=== PATIENT | female | born 1935 | race Caucasian/White ===

== ENCOUNTER → 2018-03-17 | Outpatient (CLI) | payer MEDICARE ==
--- NOTE | 2018-03-17 15:03 | US ---
EXAMINATION TYPE: US carotid duplex BILAT DATE OF EXAM: 03/17/2018 COMPARISON: NONE CLINICAL HISTORY: R09.89 Right carotid bruit. Bruit, No hx of TIA's or stroke. Controlled HTN EXAM MEASUREMENTS: RIGHT: Peak Systolic Velocity (PSV) cm/sec ----- Right CCA: 80.0 ----- Right ICA: 61.6 ----- Right ECA: 103.1 ICA/CCA ratio: 0.8 RIGHT: End Diastole cm/sec ----- Right CCA: 21.5 ----- Right ICA: 18.0 ----- Right ECA: 17.6 LEFT: Peak Systolic Velocity (PSV) cm/sec ----- Left CCA: 84.4 ----- Left ICA: 85.5 ----- Left ECA: 87.7 ICA/CCA ratio: 1.0 LEFT: End Diastole cm/sec ----- Left CCA: 23.8 ----- Left ICA: 28.2 ----- Left ECA: 11.7 VERTEBRALS (direction of flow): Right Vertebral: Antegrade Left Vertebral: Antegrade Rhythm: Normal No elevated velocities or significant stenosis. Bilateral wall thickening. Plaque seen in right bul b and left bulb extending into proximal ICA. IMPRESSION: Moderate degree of grayscale atheromatous plaquing within the left carotid bulb without elevated velocities to indicate hemodynamically significant stenosis within either visualized carotid arterial system.
== END | disposition home or self-care (01) ==
LOC: RADUSWWP 14:03
PROVIDERS: ATTEND Internal Medicine
DX: I67.2 Cerebral atherosclerosis (principal); R09.89 Other specified symptoms and signs involving the circulatory and respiratory systems
CPT/HCPCS: 93880

== ENCOUNTER 2019-03-30 18:46 | Emergency (ER) | payer MEDICARE ==
[2019-03-30 18:56] VITALS: BP 128/71; PULSE 67; RESP 18; TEMP 98.1
[2019-03-30] MEDS ORDERED: DIPH,PERTUS(ACELL)TETVAC-LF 0.5 ML VIAL IM ONE (19:28)
[2019-03-30] MEDS ORDERED: LIDOCAINE 1% INJ 10MG/ML (20 ML MDV) SQ ONE (19:43)
--- NOTE | 2019-03-30 19:44 | ED ---
General Adult HPI - General Chief complaint: Head Injury Stated complaint: fall, facial injury Time Seen by Provider: 03/30/19 19:00 Source: patient, family, RN notes reviewed, old records reviewed Mode of arrival: wheelchair Limitations: no limitations - History of Present Illness Initial comments: 83-year-old female presents range from today after tripping and falling. She states that she was putting her trash away and tripped, she states she was in her bathroom and hit her head. Patient states that she has a laceration over right eyebrow. Just her tetanus is up-to-date. Denies loss of conscious. She went to her neighbors who brought her here for evaluation. Patient does take a daily aspirin. - Related Data Home Medications Medication Instructions Recorded Confirmed Aspirin 81 mg PO Q48H 08/02/14 03/30/19 Triamterene-Hctz 37.5-25Mg 1 cap PO DAILY 08/02/14 03/30/19 [Dyazide 37.5-25 Capsule] amLODIPine BESYLATE/BENAZEPRIL 1 cap PO DAILY 08/02/14 03/30/19 [Lotrel 10-40 mg Capsule] Mirtazapine [Remeron] 7.5 mg PO HS 03/30/19 03/30/19 Allergies Allergy/AdvReac Type Severity Reaction Status Date / Time Iodinated Contrast- Oral and AdvReac "I went Verified 03/30/19 19:08 IV Dye crazy" [Iodinated Contrast Media - IV Dye] prednisone AdvReac Nausea & Verified 03/30/19 19:08 Vomiting Review of Systems ROS Statement: Those systems with pertinent positive or pertinent negative responses have been documented in the HPI. ROS Other: All systems not noted in ROS Statement are negative. Past Medical History Past Medical History: COPD, GERD/Reflux, Hypertension, Osteoarthritis (OA) Additional Past Medical History / Comment(s): past hx. of kidney stones, had back & achilles tendon injury recently but have now healed, impacted stool that she manually removes 3x's per day History of Any Multi-Drug Resistant Organisms: None Reported Past Surgical History: Appendectomy, Back Surgery, Hysterectomy, Tonsillectomy Additional Past Surgical History / Comment(s): carpal tunnel surg., cataract surg 2013 Past Anesthesia/Blood Transfusion Reactions: No Reported Reaction Past Psychological History: No Psychological Hx Reported Smoking Status: Current some day smoker Past Alcohol Use History: None Reported Past Drug Use History: None Reported - Past Family History Mother Family Medical History: Coronary Artery Disease (CAD), Diabetes Mellitus Father Family Medical History: Coronary Artery Disease (CAD) General Exam - General Exam Comments Initial Comments: 83-year-old female. Alert and oriented 3. No distress. Limitations: no limitations General appearance: alert, in no apparent distress Head exam: Present: atraumatic, normocephalic, normal inspection Eye exam: Present: PERRL, EOMI, periorbital swelling, periorbital tenderness (over bilateralupper brow ), other (laceration over r eyebrow, flap 4cm ). Absent: normal appearance, scleral icterus, conjunctival injection ENT exam: Present: normal exam, mucous membranes moist Neck exam: Present: normal inspection. Absent: tenderness, meningismus, lymphadenopathy Respiratory exam: Present: normal lung sounds bilaterally. Absent: respiratory distress, wheezes, rales, rhonchi, stridor Cardiovascular Exam: Present: regular rate, normal rhythm, normal heart sounds. Absent: systolic murmur, diastolic murmur, rubs, gallop, clicks GI/Abdominal exam: Present: soft, normal bowel sounds. Absent: distended, tenderness, guarding, rebound, rigid Extremities exam: Present: normal inspection, full ROM, normal capillary refill. Absent: tenderness, pedal edema, joint swelling, calf tenderness Back exam: Present: normal inspection Neurological exam: Present: alert, oriented X3, CN II-XII intact Psychiatric exam: Present: normal affect, normal mood Skin exam: Present: warm, dry, intact, normal color. Absent: rash Course Vital Signs 03/30/19 18:52 Temperature 98.1 F Pulse Rate 67 Respiratory 18 Rate Blood Pressure 128/71 O2 Sat by Pulse 95 Oximetry Procedures - Laceration Laceration #1 Site: eyelid (R eyebrow ) Size (cm): 4 Description: flap Depth: simple, single layer Anesthetic Used: lidocaine 1% Anesthesia Technique: local infiltration Amount (mls): 4 Pre-repair: wound explored, irrigated extensively Type of Sutures: nylon Size of Sutures: 6-0 Number of Sutures: 8 Technique: simple, interrupted Patient Tolerated Procedure: well, no complications Medical Decision Making - Medical Decision Making 83 year old not on blood thinners had slip and fall, causing bilateral eyebrow bruising, and R eyebrow and lid laceration. EOM and visual acuity intact. CT brain and facial bones is negative for acute process. Wound was cleansed and closed well. Discussed monitor for infection. Disposition Clinical Impression: Fall, Traumatic hematoma of forehead, Eyebrow laceration Disposition: HOME SELF-CARE Condition: Good Instructions (If sedation given, give patient instructions): Fall Prevention for Older Adults (ED), Facial Laceration (ED) Additional Instructions: Please return to the emergency room in 7 days to have sutures removed. Please leave wound covered for the first 24-48 hours and then leave open to air after that time. Please use clean soap and water to clean the suture area to prevent scabbing over the top of your sutures. Please watch for any signs of infection which may include but not limited to increased pain, swelling, redness, fever or chills. Please return to the emergency room if any signs of infection do occur. Please return to the emergency room for any other concerns or complications. Patient should apply ice over the area of hematoma for 20 minutes off and on for the next 1-2 days. Is patient prescribed a controlled substance at d/c from ED?: No Referrals: Mo Araujo MD [Primary Care Provider] - 1-2 days Time of Disposition: 20:30
--- NOTE | 2019-03-30 20:14 | CT ---
EXAMINATION TYPE: CT brain erasmo fuentes DATE OF EXAM: 03/30/2019 COMPARISON: None HISTORY: fall, laceration above right eye CT DLP: 950.2 combined DLP mGycm Automated exposure control for dose reduction was used. TECHNIQUE: CT scan of the head and cervical spine are performed without contrast. FINDINGS: There is cerebral cortical atrophy. There is no mass effect nor midline shift. There is n o sign of intracranial hemorrhage. There is left side frontal scalp soft tissue swelling. The calvari um appears intact. There is soft tissue laceration deformity over the right frontal bone. Cervical vertebra have normal alignment. There is degenerative disc space narrowing in the mid and lo wer cervical spine. Facet joints are intact. The skull base is intact. There is no evidence of a frac ture. IMPRESSION: Cerebral atrophy. No acute intracranial abnormality. Left frontal scalp hematoma. Right frontal scalp laceration. Spondylotic changes in the cervical spine. No fracture seen.
--- NOTE | 2019-03-30 20:17 | CT ---
EXAMINATION TYPE: CT facial bones wo con DATE OF EXAM: 03/30/2019 COMPARISON: None HISTORY: fall, laceration above right eye CT DLP: 950.2 combined DLP mGycm Automated exposure control for dose reduction was used. TECHNIQUE: CT scan of the sinuses is performed without contrast, axial images are obtained, coronal r eformatted images are also reviewed. FINDINGS: Mandibular ring is intact. Temporomandibular joints appear intact. There is mucous small re tention cyst right maxillary sinus. Zygomatic arches are intact. There is no evidence of a blowout fr acture. There is thickening in the floor of the left maxillary sinus. I see no focal bone destruction . Orbital margins are intact. There is no evidence of retro-orbital mass. There is left periorbital s oft tissue swelling. There is right frontal scalp laceration deformity. I see no focal bone destructi on. There is normal aeration of the mastoid sinuses. IMPRESSION: No acute bony abnormality. No fracture seen.
== END 2019-03-30 21:47 | disposition home or self-care (01) ==
LOC: EC 18:46
DX: S01.111A Laceration without foreign body of right eyelid and periocular area, initial encounter (principal); Z23 Encounter for immunization; I10 Essential (primary) hypertension; F17.200 Nicotine dependence, unspecified, uncomplicated; Z79.82 Long term (current) use of aspirin; Z79.899 Other long term (current) drug therapy; Z88.8 Allergy status to other drugs, medicaments and biological substances; Z91.041 Radiographic dye allergy status; W01.198A Fall on same level from slipping, tripping and stumbling with subsequent striking against other object, initial encounter; Y92.002 Bathroom of unspecified non-institutional (private) residence as the place of occurrence of the external cause
CPT/HCPCS: 12013; 70450; 70486; 72125; 90471; 90715; 99284

== ENCOUNTER → 2019-04-06 | Outpatient (CLI) | payer MEDICARE ==
[2019-04-06 16:22] LABS: Vitamin D 25 Hydroxy 20.4 ng/mL (30.0-100.0)
== END | disposition home or self-care (01) ==
LOC: LABWHC1 09:32
PROVIDERS: ATTEND Psychiatry & Neurology Neurology
DX: E55.9 Vitamin D deficiency, unspecified (principal); F03.90 Unspecified dementia, unspecified severity, without behavioral disturbance, psychotic disturbance, mood disturbance, and anxiety; R41.3 Other amnesia
CPT/HCPCS: 36415; 82306; 82607; 82747; 84207; 85652; 86038

== ENCOUNTER 2019-05-24 10:42 | Emergency (ER) | payer MEDICARE ==
[2019-05-24 10:52] VITALS: RESP 18; TEMP 97.4
[2019-05-24] MEDS ORDERED: ACETAMINOPHEN TAB 325 MG TAB PO STA (11:26)
--- NOTE | 2019-05-24 11:54 | ED ---
Back Pain HPI - General Chief Complaint: Back Pain/Injury Stated Complaint: upper back pain Time Seen by Provider: 05/24/19 11:04 Source: patient, Caregiver Mode of arrival: ambulatory Limitations: altered mental status, physical limitation - History of Present Illness Initial Comments: The patient is an 83-year-old female who presents to the emergency department with a reported fall. The patient does live in an assisted care facility. Her main paleologist is at bedside. Her paleologist reports that she had a fall last night that was unwitnessed. The facility staff states that the patient was found in the hallway in the middle the night. She has a history of dementia with sundowners. She frequently has insomnia and will be up all night. The p atient was found have a skin tear to her right forearm and she was complaining of thoracic back pain. The arm was dressed and the patient was taken back to her room. Today the patient's main paleologist visited her and found that she was complaining of constant mid back pain. She does not take anything for pain. The patient cannot provide any details regarding the fall. She denies that she hit her head. She is not on any blood thinners. She denies a syncopal episode. She reports thoracic back pain which is midline as well as paraspinal. She denies any cervical or lumbar back pain. The patient is able to ambulate. She normally ambulates with a cane. She denies any weakness in her lower extremities. Denies any arm pain or leg pain. No reported headaches, nausea, vomiting, abdominal pain, pelvic pain. No changes in her bowel or bladder habits. No recent medication changes. She denies vision changes, unilateral numbness or weakness, fevers or chills. There are no other alleviating, precipitating or modifying factors. - Related Data Home Medications Medication Instructions Recorded Confirmed amLODIPine BESYLATE/BENAZEPRIL 1 cap PO DAILY@0800 /08/14 05/24/19 [Lotrel 10-40 mg Capsule] Furosemide [Lasix] 20 mg PO DAILY@0800 PRN 05/24/19 05/24/19 Melatonin 10 mg PO HS@2100 05/24/19 05/24/19 Memantine [Namenda] See Taper PO DAILY 05/24/19 05/24/19 Sulfamethox-Tmp 800-160Mg [Bactrim 1 tab PO BID 05/24/19 05/24/19 DS 800-160 mg] risperiDONE [RisperDAL] 0.5 mg PO DAILY PRN 05/24/19 05/24/19 risperiDONE [RisperDAL] 1 mg PO BID@1230,2045 05/24/19 05/24/19 Allergies Allergy/AdvReac Type Severity Reaction Status Date / Time Iodinated Contrast- Oral and AdvReac "I went Verified 05/24/19 10:51 IV Dye crazy" [Iodinated Contrast Media - IV Dye] prednisone AdvReac Nausea & Verified 05/24/19 10:51 Vomiting Review of Systems ROS Statement: Those systems with pertinent positive or pertinent negative responses have been documented in the HPI. ROS Other: All systems not noted in ROS Statement are negative. Past Medical History Past Medical History: COPD, Dementia, GERD/Reflux, Hypertension, Osteoarthritis (OA) Additional Past Medical History / Comment(s): past hx. of kidney stones, had back & achilles tendon injury recently but have now healed, impacted stool that she manually removes 3x's per day History of Any Multi-Drug Resistant Organisms: None Reported Past Surgical History: Appendectomy, Back Surgery, Hysterectomy, Tonsillectomy Additional Past Surgical History / Comment(s): carpal tunnel surg., cataract surg 2013 Past Anesthesia/Blood Transfusion Reactions: No Reported Reaction Past Psychological History: No Psychological Hx Reported Smoking Status: Current some day smoker Past Alcohol Use History: None Reported Past Drug Use History: None Reported - Past Family History Mother Family Medical History: Coronary Artery Disease (CAD), Diabetes Mellitus Father Family Medical History: Coronary Artery Disease (CAD) General Exam Limitations: altered mental status, physical limitation General appearance: alert, in no apparent distress, other (the patient is A+Ox2 at baseline) Head exam: Present: atraumatic, normocephalic, normal inspection Eye exam: Present: normal appearance, PERRL, EOMI. Absent: scleral icterus, conjunctival injection, periorbital swelling ENT exam: Present: normal exam, mucous membranes moist Neck exam: Present: normal inspection. Absent: tenderness, meningismus, lymphadenopathy Respiratory exam: Present: normal lung sounds bilaterally. Absent: respiratory distress, wheezes, rales, rhonchi, stridor Cardiovascular Exam: Present: regular rate, normal rhythm, normal heart sounds. Absent: systolic murmur, diastolic murmur, rubs, gallop, clicks GI/Abdominal exam: Present: soft, normal bowel sounds. Absent: distended, tenderness, guarding, rebound, rigid Extremities exam: Present: normal inspection, full ROM, normal capillary refill. Absent: tenderness, pedal edema, joint swelling, calf tenderness Back exam: Present: normal inspection Neurological exam: Present: alert, oriented X3, CN II-XII intact Psychiatric exam: Present: normal affect, normal mood Skin exam: Present: warm, dry, intact, normal color, other (The patient is a 3 cm skin tear located to the right forearm). Absent: rash Course Vital Signs 05/24/19 05/24/19 05/24/19 10:49 12:47 14:00 Temperature 97.4 F L Pulse Rate 59 L 61 Respiratory 18 18 18 Rate Blood Pressure 107/53 106/60 116/63 O2 Sat by Pulse 90 L 95 Oximetry Medical Decision Making - Medical Decision Making The patient was seen by myself. She is placed in room 9. I did perform a physical exam which demonstrates a skin tear to the right forearm. The patient was provided with a tetanus shot. She does go over for CT imaging of her brain, C-spine, T-spine. She also has a chest and pelvic x-ray performed. CT of the patient's brain does reveal possible occipital petechial hemorrhage. She also has a T3 compression fracture which I do believe is acute as this is where the patient's pain is located. I recommended transfer to [facility] for which the patient and the paleologist agreed. I called and discussed the case with Dr. Castano who did accept the transfer. The patient will be transferred for neurosurgical evaluation. - Differential Diagnosis Fall, blunt head trauma, possible petechial bleed - Radiology Data Radiology results: report reviewed, image reviewed Disposition Clinical Impression: Mid back pain, Fall, Closed fracture of thoracic vertebral body Disposition: OTHER INSTITUTION NOT DEFINED Condition: Stable Is patient prescribed a controlled substance at d/c from ED?: No Referrals: Polo Poole MD [Primary Care Provider] - 1-2 days Time of Disposition: 14:00 - Out of Hospital Transfer - Req. Specs Out of Hospital Transfer - Requested Specifics: Intensive Care Unit
--- NOTE | 2019-05-24 12:29 | XR ---
EXAMINATION TYPE: XR chest 2V DATE OF EXAM: 05/24/2019 HISTORY: Pain. REFERENCE: Previous study dated 03/06/2016. FINDINGS: The heart is enlarged. There are increased markings throughout the chest. No pleural fluid is seen. The study is rotated. IMPRESSION: CARDIOMEGALY.
--- NOTE | 2019-05-24 12:30 | XR ---
EXAMINATION TYPE: XR pelvis AP view , ONE VIEW DATE OF EXAM ORDERED: 05/24/2019 HISTORY: Pain. COMPARISON: None. FINDINGS: There are degenerative changes in the hips and spine. No pelvic fracture is seen. IMPRESSION: 1. NO ACUTE OSSEOUS LESION. 2. DEGENERATIVE CHANGE.
--- NOTE | 2019-05-24 12:31 | XR ---
EXAMINATION TYPE: XR forearm RT , 2 VIEWS DATE OF EXAM ORDERED: 05/24/2019 HISTORY: Pain. COMPARISON: None. FINDINGS: No long bone fracture is seen. There are degenerative changes present at the first MCP julianna nt. IMPRESSION: NO ACUTE OSSEOUS LESION.
--- NOTE | 2019-05-24 12:35 | CT ---
EXAMINATION TYPE: CT thoracic spine wo con DATE OF EXAM: 05/24/2019 COMPARISON: None. HISTORY: Fall CT DLP: 445 mGycm Automated exposure control for dose reduction was used. FINDINGS: There are emphysematous changes throughout the visualized portions of the lungs. There is a telectasis present in the dependent portions of the lungs. There is additional airspace disease in th e posterior basal segment of the left lower lobe which may represent additional atelectasis or early pneumonia. The heart is mildly enlarged. There is arterial calcification including the coronary arter ies. Vertebral body height and alignment are maintained. 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 No fractures are seen. No protrusi on is identified. IMPRESSION: 1. NO ACUTE OSSEOUS LESION. 2. DEGENERATIVE CHANGE.
--- NOTE | 2019-05-24 12:46 | CT ---
EXAMINATION TYPE: CT brain erasmo fuentes DATE OF EXAM: 05/24/2019 COMPARISON: NONE HISTORY: Fall CT DLP: 1211.1 mGycm Automated exposure control for dose reduction was used. TECHNIQUE: CT scan of the head and cervical spine are performed without contrast. FINDINGS: BRAIN: There are generalized changes of sulcal prominence and ventriculomegaly, compatible with atrop hic change. There is diffuse periventricular white matter lucency compatible with chronic white matte r ischemic change. There is no acute focal lesion, mass effect or midline shift identified. I do not see evidence of intracranial blood. There is a small amount of calcification along the inferior occip ital lobe. This is just above the tentorium. It would be difficult to exclude some minimal petechial hemorrhage. There is no mass effect or midline shift. There is a 1 cm retention cyst or polyp in the anterior aspect of the right maxillary sinus. There ar e concretions within the left maxillary sinus. The mastoids are clear. The bony calvarium is intact. IMPRESSION: 1. ALTHOUGH THE INCREASED DENSITY IN THE INFERIOR OCCIPITAL LOBE ON THE RIGHT LIKELY REPRESENTS CALCI FICATION I COULD NOT EXCLUDE A SMALL AMOUNT OF PETECHIAL HEMORRHAGE. 2. AGE-RELATED DEGENERATIVE CHANGE. 3. BILATERAL MAXILLARY SINUS MUCOSAL DISEASE. CERVICAL SPINE: There are emphysematous changes in the visualized portions of the lungs. Prevertebral soft tissues are otherwise unremarkable. There is mild wedging of the T3 vertebral body. I suspect this is chronic. There is diffuse degenerat keyla disc disease throughout the cervical spine with relative sparing of C2-3 and C3-4. There is mild, diffuse uncovertebral joint disease. There is facet arthropathy on the left at C2-3. There is bilate ral facet arthropathy at C4-5 No acute cervical fractures are seen. IMPRESSION: 1. MILD WEDGING OF THE T3 VERTEBRAL BODY, LIKELY CHRONIC. PLEASE CORRELATE CLINICALLY. 2. NO DEFINITE ACUTE FRACTURE. 3. DEGENERATIVE CHANGE. 4. EMPHYSEMATOUS CHANGE.
[2019-05-24] MEDS ORDERED: DIPH,PERTUS(ACELL)TETVAC-LF 0.5 ML VIAL IM ONE (13:24)
[2019-05-24 14:05] VITALS: BP 116/63; PULSE 61
== END 2019-05-24 14:13 | disposition other institution (70) ==
LOC: EC 10:42
DX: S22.039A Unspecified fracture of third thoracic vertebra, initial encounter for closed fracture (principal); S51.811A Laceration without foreign body of right forearm, initial encounter; F03.90 Unspecified dementia, unspecified severity, without behavioral disturbance, psychotic disturbance, mood disturbance, and anxiety; I10 Essential (primary) hypertension; F17.200 Nicotine dependence, unspecified, uncomplicated; Z98.890 Other specified postprocedural states; Z23 Encounter for immunization; Z79.899 Other long term (current) drug therapy; Z91.041 Radiographic dye allergy status; Z88.8 Allergy status to other drugs, medicaments and biological substances; W19.XXXA Unspecified fall, initial encounter; Y92.128 Other place in nursing home as the place of occurrence of the external cause
CPT/HCPCS: 70450; 71046; 72125; 72128; 72170; 90471; 90715; 99285

== ENCOUNTER 2019-06-09 11:21 | Inpatient (IN) | payer MEDICARE ==
[2019-06-09] MEDS ORDERED: SODIUM CHLORIDE 0.9% 1,000 ML IV STA ×2 (11:55)
[2019-06-09 13:03] LABS: Basophils % (A) 0 %; Eosinophils # (A) 0.1 k/uL (0-0.7); Eosinophils % (A) 1 %; HCT 41.7 % (34.0-46.0); HGB 13.3 gm/dL (11.4-16.0); Lymphocytes # (A) 0.3 k/uL (1.0-4.8); Lymphocytes % (A) 2 %; MCH 29.8 pg (25.0-35.0); MCHC 31.8 g/dL (31.0-37.0); MCV 93.7 fL (80.0-100.0); Mean Platelet Volume 7.1; Monocytes # (A) 0.4 k/uL (0-1.0); Monocytes % (A) 3 %; Neutrophils # (A) 10.5 k/uL (1.3-7.7); Neutrophils % (A) 93 %; Platelet Count 273 k/uL (150-450); RBC 4.45 m/uL (3.80-5.40); RDW 13.8 % (11.5-15.5); WBC 11.4 k/uL (3.8-10.6)
[2019-06-09 13:12] LABS: INR 0.9 (<1.2); Partial Thromboplastin Time 24.6 sec (22.0-30.0); Prothrombin Time 10.1 sec (9.0-12.0)
[2019-06-09 13:21] LABS: Albumin 3.8 g/dL (3.5-5.0); Calcium 9.3 mg/dL (8.4-10.2); Magnesium 1.9 mg/dL (1.6-2.3); Phosphorus 4.2 mg/dL (2.5-4.5); Potassium 4.5 mmol/L (3.5-5.1); Total Bilirubin 0.6 mg/dL (0.2-1.3); Total Protein 6.4 g/dL (6.3-8.2)
--- NOTE | 2019-06-09 13:33 | CT ---
EXAMINATION TYPE: CT brain wo con DATE OF EXAM: 06/09/2019 HISTORY: Altered mental status and weakness. CT DLP: 2286.4 mGycm. Automated Exposure Control for Dose Reduction was Utilized. TECHNIQUE: CT scan of the head is performed without contrast. COMPARISON: CT brain May 24, 2019. FINDINGS: Exam suboptimal as is degraded by patient motion There is no definitive acute intracrania l hemorrhage or midline shift identified. There is diffuse ventricular and sulcal prominence consiste nt with diffuse age-related cerebral atrophy. There is low-attenuation in the periventricular white matter consistent with chronic small vessel ischemic change. The globes are intact and the visualize d sinuses are clear. IMPRESSION: Suboptimal study without acute intracranial hemorrhage or midline shift clearly seen. Th ere is moderate diffuse age-related cerebral atrophy and chronic small vessel ischemic change demonst rated. There is no significant change from prior.
--- NOTE | 2019-06-09 13:42 | XR ---
EXAMINATION TYPE: XR chest 2V DATE OF EXAM: 06/09/2019 COMPARISON: 05/24/2019 TECHNIQUE: PA and lateral views submitted. HISTORY: Weakness FINDINGS: Left lower lobe infiltrate. Atherosclerotic change aorta. Heart size normal. No pneumothorax. Chronic deformity of the left humeral neck. No overt failure. Hypertrophic and degenerative changes spine. IMPRESSION: 1. Left lower lobe infiltrate.
[2019-06-09 13:50] LABS: Appearance,Urine Cloudy (Clear); Bacteria,Urine Rare /hpf; Bilirubin,Urine Negative (Negative); Blood,Urine Negative (Negative); Color,Urine Yellow; Glucose,Urine (UA) Negative (Negative); Ketones,Urine Negative (Negative); Leukocyte Esterase,Urine Negative (Negative); Nitrite,Urine Negative (Negative); PH, Urine 5.5 (5.0-8.0); Protein,Urine Trace (Negative); Specific Gravity,Urine 1.022 (1.001-1.035); Squamous Epithelial Cell,Urine 1 /hpf (0-4); Urobilinogen,Urine <2.0 mg/dL (<2.0)
[2019-06-09] MEDS ORDERED: IPRATROPIUM-ALBUTEROL 3 ML NEB INHALATION STA (14:17)
--- NOTE | 2019-06-09 14:17 | ED ---
Weakness HPI - General Chief complaint: Weakness Stated complaint: WEAKNESS, Hx DIARRHEA, VOMITING Time Seen by Provider: 06/09/19 11:41 Source: family Mode of arrival: wheelchair Limitations: no limitations - History of Present Illness Initial comments: This 83-year-old white female presents with son and caregiver from her assisted living facility via EMS with the complaint of some weakness and mental status changes. She apparently had onset of symptoms this morning. They also relate that she has been coughing with yellowish production over the past week with some pain into her left side. They saw their primary care doctor and was placed on antibiotics for urinary tract infection. She apparently is not on these anymore and they are not aware of the name of the antibiotic. The patient has dementia and is limited in regard to her ability to give an accurate history of present illness. She denies any current pain. She denies any shortness of breath. There's been no known fever. No other injuries or complaints or modifying factors. She apparently does smoke tobacco significantly. - Related Data Home Medications Medication Instructions Recorded Confirmed amLODIPine BESYLATE/BENAZEPRIL 1 cap PO DAILY@0800 08/02/14 06/09/19 [Lotrel 10-40 mg Capsule] Furosemide [Lasix] 20 mg PO DAILY@0800 PRN 05/24/19 06/09/19 Melatonin 10 mg PO HS@2100 05/24/19 06/09/19 risperiDONE [RisperDAL] 0.5 mg PO DAILY PRN 05/24/19 06/09/19 risperiDONE [RisperDAL] 1 mg PO BID@1230,2045 05/24/19 06/09/19 traZODone HCL 25 mg PO HS 06/09/19 06/09/19 Allergies Allergy/AdvReac Type Severity Reaction Status Date / Time Iodinated Contrast- Oral and AdvReac "I went Verified 06/09/19 12:02 IV Dye crazy" [Iodinated Contrast Media - IV Dye] prednisone AdvReac Nausea & Verified 06/09/19 12:02 Vomiting Review of Systems ROS Statement: Those systems with pertinent positive or pertinent negative responses have been documented in the HPI. ROS Other: All systems not noted in ROS Statement are negative. Past Medical History Past Medical History: COPD, Dementia, GERD/Reflux, Hypertension, Osteoarthritis (OA) Additional Past Medical History / Comment(s): past hx. of kidney stones, had back & achilles tendon injury recently but have now healed, impacted stool that she manually removes 3x's per day History of Any Multi-Drug Resistant Organisms: None Reported Past Surgical History: Appendectomy, Back Surgery, Hysterectomy, Tonsillectomy Additional Past Surgical History / Comment(s): carpal tunnel surg., cataract surg 2013 Past Anesthesia/Blood Transfusion Reactions: No Reported Reaction Past Psychological History: No Psychological Hx Reported Smoking Status: Current every day smoker Past Alcohol Use History: None Reported Past Drug Use History: None Reported - Past Family History Mother Family Medical History: Coronary Artery Disease (CAD), Diabetes Mellitus Father Family Medical History: Coronary Artery Disease (CAD) General Exam - General Exam Comments Initial Comments: GENERAL: The patient is well nourished and well hydrated. VITAL SIGNS: Heart rate, blood pressure, respiratory rate reviewed as recorded in nurse's notes. EYES: Pupils are round and reactive. Extraocular movements are intact. No conjunctival / lid redness or swelling. ENT: No external evidence of injury, swelling, or ecchymosis. Airway is patent. Throat is clear. NECK: Nontender. No swelling or evidence of injury. No subcutaneous emphysema. Trachea is midline. No thyroid mass. HEART: Regular rate and rhythm. Good peripheral pulses. LUNGS/CHEST: Breath sounds clear and equal bilaterally. No rales, rhonchi, or wheezes. No ecchymosis, subcutaneous emphysema, or tenderness. ABDOMEN: Abdomen soft without tenderness. No palpable masses or organomegaly. No peritoneal signs. No abdominal wall swelling or ecchymosis. EXTREMITIES: No extremity tenderness. Normal muscle tone and function. No thoracolumbar tenderness. NEUROLOGIC: Sensation is grossly intact. Cranial nerve exam reveals face is symmetrical, tongue is midline, speech is clear. The patient is quite stuporous initially and will not answer any questions but on recheck is quite alert and interactive. SKIN: No abrasions or ecchymosis is noted. No induration or masses noted. PSYCHIATRIC: The patient appears to be moderately demented. Limitations: no limitations Course Vital Signs 06/09/19 11:34 Temperature 99.5 F Pulse Rate 103 H Respiratory 24 Rate Blood Pressure 106/67 O2 Sat by Pulse 97 Oximetry Medical Decision Making - Medical Decision Making The patient was seen and examined. All diagnostics were reviewed. The EKG shows a sinus rhythm at a rate of 69. There appears to be a left bundle branch block. The SC intervals 244, QRS duration is 148, and the QTC intervals 443. The patient also had a chest x-ray which shows a left lower lobe infiltrate/pneumonia. The laboratory shows elevated white blood cell count consistent with infection/pneumonia. The patient receives IV fluids and her mental status change significantly improved. She also receives Rocephin and Zithromax intravenously. She has a pulse ox of approximately 90-91% on room air. A breathing treatment is ordered. It is felt as though she would benefit from inpatient treatment at this time. Case is discussed with Dr. Johnson and she is agreeable with admission. - Lab Data Result diagrams: 06/09/19 12:45 06/09/19 12:45 Lab Results 06/09/19 06/09/19 06/09/19 Range/Units 12:45 12:45 12:45 WBC 11.4 H (3.8-10.6) k/uL RBC 4.45 (3.80-5.40) m/uL Hgb 13.3 (11.4-16.0) gm/dL Hct 41.7 (34.0-46.0) % MCV 93.7 (80.0-100.0) fL MCH 29.8 (25.0-35.0) pg MCHC 31.8 (31.0-37.0) g/dL RDW 13.8 (11.5-15.5) % Plt Count 273 (150-450) k/uL Neutrophils % 93 % Lymphocytes % 2 % Monocytes % 3 % Eosinophils % 1 % Basophils % 0 % Neutrophils # 10.5 H (1.3-7.7) k/uL Lymphocytes # 0.3 L (1.0-4.8) k/uL Monocytes # 0.4 (0-1.0) k/uL Eosinophils # 0.1 (0-0.7) k/uL Basophils # 0.0 (0-0.2) k/uL PT (9.0-12.0) sec INR (<1.2) APTT (22.0-30.0) sec Sodium 139 (137-145) mmol/L Potassium 4.5 (3.5-5.1) mmol/L Chloride 104 (98-107) mmol/L Carbon Dioxide 25 (22-30) mmol/L Anion Gap 10 mmol/L BUN 40 H (7-17) mg/dL Creatinine 0.98 (0.52-1.04) mg/dL Est GFR (CKD-EPI)AfAm 62 (>60 ml/min/1.73 sqM) Est GFR (CKD-EPI)NonAf 54 (>60 ml/min/1.73 sqM) Glucose 109 H (74-99) mg/dL Plasma Lactic Acid Lázaro 1.2 (0.7-2.0) mmol/L Calcium 9.3 (8.4-10.2) mg/dL Phosphorus 4.2 (2.5-4.5) mg/dL Magnesium 1.9 (1.6-2.3) mg/dL Total Bilirubin 0.6 (0.2-1.3) mg/dL AST 20 (14-36) U/L ALT 15 (9-52) U/L Alkaline Phosphatase 89 (38-126) U/L Troponin I (0.000-0.034) ng/mL Total Protein 6.4 (6.3-8.2) g/dL Albumin 3.8 (3.5-5.0) g/dL Urine Color Urine Appearance (Clear) Urine pH (5.0-8.0) Ur Specific [place] (1.001-1.035) Urine Protein (Negative) Urine Glucose (UA) (Negative) Urine Ketones (Negative) Urine Blood (Negative) Urine Nitrite (Negative) Urine Bilirubin (Negative) Urine Urobilinogen (<2.0) mg/dL Ur Leukocyte Esterase (Negative) Ur Squamous Epith Cells (0-4) /hpf Urine Bacteria (None) /hpf 06/09/19 06/09/19 06/09/19 Range/Units 12:45 12:45 13:00 WBC (3.8-10.6) k/uL RBC (3.80-5.40) m/uL Hgb (11.4-16.0) gm/dL Hct (34.0-46.0) % MCV (80.0-100.0) fL MCH (25.0-35.0) pg MCHC (31.0-37.0) g/dL RDW (11.5-15.5) % Plt Count (150-450) k/uL Neutrophils % % Lymphocytes % % Monocytes % % Eosinophils % % Basophils % % Neutrophils # (1.3-7.7) k/uL Lymphocytes # (1.0-4.8) k/uL Monocytes # (0-1.0) k/uL Eosinophils # (0-0.7) k/uL Basophils # (0-0.2) k/uL PT 10.1 (9.0-12.0) sec INR 0.9 (<1.2) APTT 24.6 (22.0-30.0) sec Sodium (137-145) mmol/L Potassium (3.5-5.1) mmol/L Chloride (98-107) mmol/L Carbon Dioxide (22-30) mmol/L Anion Gap mmol/L BUN (7-17) mg/dL Creatinine (0.52-1.04) mg/dL Est GFR (CKD-EPI)AfAm (>60 ml/min/1.73 sqM) Est GFR (CKD-EPI)NonAf (>60 ml/min/1.73 sqM) Glucose (74-99) mg/dL Plasma Lactic Acid Lázaro (0.7-2.0) mmol/L Calcium (8.4-10.2) mg/dL Phosphorus (2.5-4.5) mg/dL Magnesium (1.6-2.3) mg/dL Total Bilirubin (0.2-1.3) mg/dL AST (14-36) U/L ALT (9-52) U/L Alkaline Phosphatase (38-126) U/L Troponin I 0.014 (0.000-0.034) ng/mL Total Protein (6.3-8.2) g/dL Albumin (3.5-5.0) g/dL Urine Color Yellow Urine Appearance Cloudy H (Clear) Urine pH 5.5 (5.0-8.0) Ur Specific [place] 1.022 (1.001-1.035) Urine Protein Trace H (Negative) Urine Glucose (UA) Negative (Negative) Urine Ketones Negative (Negative) Urine Blood Negative (Negative) Urine Nitrite Negative (Negative) Urine Bilirubin Negative (Negative) Urine Urobilinogen <2.0 (<2.0) mg/dL Ur Leukocyte Esterase Negative (Negative) Ur Squamous Epith Cells 1 (0-4) /hpf Urine Bacteria Rare H (None) /hpf Disposition Clinical Impression: Pneumonia, Altered mental status, Dementia, Leukocytosis, Hypoxia, Tobacco abuse Disposition: ADMITTED IP TO THIS HOSP Condition: Fair Is patient prescribed a controlled substance at d/c from ED?: No Referrals: Polo Poole MD [Primary Care Provider] - 1-2 days Time of Disposition: 14:30 Decision Date: 06/09/19 Decision Time: 14:30
[2019-06-09] MEDS ORDERED: AZITHROMYCIN 500 MG in SODIUM CHLORIDE 0.9% 250 ML IVPB STA (14:18)
[2019-06-09] MEDS ORDERED: IPRATROPIUM-ALBUTEROL 3 ML NEB INHALATION PRN (14:30)
[2019-06-09] MEDS ORDERED: risperiDONE 0.5 MG TAB PO PRN (14:36)
[2019-06-09 15:18] VITALS: BMI 21.1
[2019-06-09] MEDS ORDERED: ONDANSETRON 4 MG/2 ML VIAL IVP PRN (15:41)
[2019-06-09] MEDS ORDERED: NALOXONE 0.4 MG/ML 1 ML VIAL IV PRN (15:41)
[2019-06-09] MEDS ORDERED: NICOTINE POLACRILEX 2 MG GUM BUCCAL PRN (15:41)
[2019-06-09] MEDS ORDERED: BISACODYL 5 MG TABLET.DR PO PRN (15:41)
--- NOTE | 2019-06-09 15:49 | P.HPIM ---
History of Present Illness H&P Date: 06/09/19 Chief Complaint: vomiting, cough, diarrhea Patient is an 83-year-old female with a past medical history of dementia with sundowner's, hypertension, GERD, kidney stones, and possible COPD who presented to the emergency department and due to concern from her woods laborer and family of altered mentation and vomiting. In the ER she underwent an extensive evaluation. On arrival she was tachycardic with heart rate of 103. Laboratory analysis revealed white blood cell count of 11.4, BUN 40 and glucose of 109. She underwent a chest x-ray which showed left lower lobe infiltrate and CT brain which showed no acute intracranial hemorrhage or midline shift along with moderate diffuse age-related atrophy. She was started on IV fluids, Rocephin, and Zithromax. Arrangements were made for admission. Patient seen and examined at bedside. Her son Crispin is present. Apparently she was in her normal state of health yesterday. However when she awoke today she had an episode of vomiting and diarrhea. She was very lethargic and seemed more confused than normal. Patient has dementia and is unable to recount full history. She denies any cough, cold, fever, flu, nausea, vomiting, or diarrhea. She is not currently having any abdominal pain. Patient follows with [facility] Barros nurse practitioner for Dr. aguirre's office. Apparently she has been having some left-sided chest pain and coughing for the last week. She was seen at Dr. Hays's office but they did not initially have concern for pneumonia. She has been taking antibiotics for her urinary tract infection. Her son is unsure what antibiotic. She has a woods laborer Eileen Paz that typically takes her all of her appointments and is able to make medical decisions for the patient. Her son typically lives in [place] and is due to return home tomorrow. She also has had recent medication adjustment due to her dementia with sundowner's. She smokes approximately a pack a day. She used to see Dr. Araujo but was angry after her drivers license was taken away and she started seeing [facility] about 3-4 months ago. Review of Systems ROS unobtainable: due to mental status Past Medical History Past Medical History: COPD, Dementia, GERD/Reflux, Hypertension, Osteoarthritis (OA) Additional Past Medical History / Comment(s): Chronic Bronchitis, nephrolithiasis, constipation/stool impactions, diverticulosis, hepatitis years ago-pt cannot recall type, occasional ankle/pedal edema, arthritis in hands/fingers/feet/toes, hiatla hernia. T 3 compression fracture. Frequent UTI. History of Any Multi-Drug Resistant Organisms: None Reported Past Surgical History: Appendectomy, Back Surgery, Hysterectomy, Orthopedic Surgery, Tonsillectomy Additional Past Surgical History / Comment(s): EGD, colonoscopy, hemorrhoidectomy, bilateral carpal tunnel releases, lumbar fusion, bilateral cataract removals/lens implants, L eye corneal debridement. Past Anesthesia/Blood Transfusion Reactions: No Reported Reaction Smoking Status: Current every day smoker Past Alcohol Use History: None Reported Additional History: Lives [facility], has care takers that bringher to each meal and do medications, also has someone that sits with her 4 hours at night due to . - Past Family History Mother Family Medical History: Coronary Artery Disease (CAD), Diabetes Mellitus, Hypertension Father Family Medical History: Coronary Artery Disease (CAD) Additional Family Medical History / Comment(s): Father had PUD. Medications and Allergies Home Medications Medication Instructions Recorded Confirmed Type amLODIPine BESYLATE/BENAZEPRIL 1 cap PO DAILY@0800 09//06/09/19 History [Lotrel 10-40 mg Capsule] Furosemide [Lasix] 20 mg PO DAILY@0800 PRN 05/24/19 06/09/19 History Melatonin 10 mg PO HS@2100 05/24/19 06/09/19 History risperiDONE [RisperDAL] 0.5 mg PO DAILY PRN 05/24/19 06/09/19 History risperiDONE [RisperDAL] 1 mg PO BID@1230,2045 05/24/19 06/09/19 History traZODone HCL 25 mg PO HS 06/09/19 06/09/19 History Allergies Allergy/AdvReac Type Severity Reaction Status Date / Time Iodinated Contrast- Oral and AdvReac "I went Verified 06/09/19 12:02 IV Dye crazy" [Iodinated Contrast Media - IV Dye] prednisone AdvReac Nausea & Verified 06/09/19 12:02 Vomiting Physical Exam Osteopathic Statement: *. No significant issues noted on an osteopathic structural exam other than those noted in the History and Physical/Consult. Vitals: Vital Signs Temp Pulse Resp BP Pulse Ox 06/09/19 14:43 78 06/09/19 14:35 79 06/09/19 11:34 99.5 F 103 H 24 106/67 97 Intake and Output 06/09/19 06/09/19 06/09/19 06:59 14:59 22:59 Other: Weight 48.988 kg General: non toxic, no distress, appears at stated age, normal weight Derm: multiple areas of ecchymosis, no unusual rashes/lesions, warm, dry Head: atraumatic, normocephalic, symmetric Eyes: EOMI, no lid lag, anicteric sclera, pupils equal round reactive to light ENT: Nose and ears atraumatic, no thrush, no pharyngeal erythema Neck: No thyromegaly, no cervical lymphadenopathy, trachea midline, supple Mouth: no lip lesion, mucus membranes dry Cardiovascular: S1S2 reg, no murmur, positive posterior tibial pulse bilateral, no edema, capillary refill less than 2 seconds Lungs: Decreased bs left basel, no rhonchi, no rales , no accessory muscle use Abdominal: soft, nontender to palpation, no guarding, no appreciable organomegaly, normal bowel sounds Ext: no gross muscle atrophy, muscle strength 5 out of 5 in all 4 extremities grossly, no contractures, Neuro: CN II-XI grossly intact, light touch intact all 4 extremities, finger to nose within normal limits, Psych: Alert, oriented to self, [facility], and thinks it is 2016, appropriate affect Results CBC & Chem 7: 06/09/19 12:45 06/09/19 12:45 Labs: Abnormal Lab Results - Last 24 Hours (Table) 06/09/19 06/09/19 06/09/19 Range/Units 12:45 12:45 13:00 WBC 11.4 H (3.8-10.6) k/uL Neutrophils # 10.5 H (1.3-7.7) k/uL Lymphocytes # 0.3 L (1.0-4.8) k/uL BUN 40 H (7-17) mg/dL Glucose 109 H (74-99) mg/dL Urine Appearance Cloudy H (Clear) Urine Protein Trace H (Negative) Urine Bacteria Rare H (None) /hpf Chest x-ray: report reviewed, image reviewed Thrombosis Risk Factor Assmnt - DVT/VTE Prophylaxis DVT/VTE Prophylaxis: Pharmacologic Prophylaxis ordered - Choose All That Apply Any of the Below Risk Factors Present?: Yes Each Factor Represents 1 point: Serious lung disease incl. pneumonia (< 1month) Other Risk Factors: Yes Each Risk Factor Represents 3 Points: Age 75 years or older Other congenital or acquired thrombophilia - If yes, enter type in comment: No Thrombosis Risk Factor Assessment Total Risk Factor Score: 4 Thrombosis Risk Factor Assessment Level: Moderate Risk Assessment and Plan Assessment: Community-acquired pneumonia, present on admission -Continue with Zithromax and Rocephin -IV fluids -Repeat chest x-ray in a.m. -Sputum culture if able -Pulmonary hygiene -Bronchodilators -swallow eval Dehydration -Hold Lasix -Gentle IV fluids -Repeat basic metabolic profile in a.m. Dementia with sundowner's -Continue patient's risperidone, trazodone, and melatonin -Safe and supportive environment -Sitter if necessary HTN, controlled - norvasc and lisinopril - follow BP Tobacco abuse - cessation - nicotine replacement Chronic: GERD Recurrent urinary tract infection Constipation The patient is admitted with an anticipated greater than 2 midnight stay for evaluation of Pneumonia. Surrogate decision-maker: drive thru order taker Eileen Paz, first person to [employer] and has DPOA [phone] CODE STATUS: DNR DVT prophylaxis: Lovenox Discussed with: Patient, nursing, son, and ED physician Anticipated discharge date: 1-[address]: return to [facility] with home health A total of 65 minutes was spent on the care of this complex patient more than 50% of the time was spent in counseling and care coordination.
[2019-06-09] MEDS: SODIUM CHLORIDE 0.9% 1,000 ML IV SCH (19:45)
[2019-06-09] MEDS: NICOTINE 14MG/24HR PATCH TRANSDERM SCH (19:51)
[2019-06-09] MEDS: risperiDONE 1 MG TAB PO SCH (20:47)
[2019-06-09] MEDS: MELATONIN 5 MG TABLET PO SCH (21:12)
[2019-06-09] MEDS: traZODone HCL 50 MG TAB PO SCH (21:12)
[2019-06-10] MEDS: SODIUM CHLORIDE 0.9% 1,000 ML IV SCH ×2 (04:59→18:24)
[2019-06-10 09:21] LABS: HCT 39.7 % (34.0-46.0); HGB 12.8 gm/dL (11.4-16.0); MCH 30.1 pg (25.0-35.0); MCHC 32.2 g/dL (31.0-37.0); MCV 93.6 fL (80.0-100.0); Mean Platelet Volume 7.4; Platelet Count 215 k/uL (150-450); RBC 4.24 m/uL (3.80-5.40); RDW 14.5 % (11.5-15.5); WBC 6.1 k/uL (3.8-10.6)
[2019-06-10] MEDS: ENOXAPARIN 40 MG/0.4 ML SYRINGE SQ SCH (09:22)
[2019-06-10] MEDS: amLODIPine 10 MG TAB PO SCH (09:22)
[2019-06-10] MEDS: LISINOPRIL 20 MG TAB PO SCH (09:22)
--- NOTE | 2019-06-10 09:22 | CDI ---
Pt. was seen today for the first time and she was pleasantly confused but not encephalopathic. She was not seen when presented so unable to determine her mental status at presentation. Documentation Clarification Form Date: 06/10/2019 9:04:10 AM From: Haley Rodriguez RN CCDS Admit Date: 06/09/2019 2:30:00 PM Patient Name: Jesusita Blanton Visit Number: [id number] Discharge Date: ATTENTION: The Clinical Documentation Specialists (CDI) and [facility] Coding Staff appreciate your assistance in clarifying documentation. Please respond to the clarification below the line at the bottom and electronically sign. The CDI & [facility] Coding staff will review the response and follow-up if needed. Please note: Queries are made part of the Legal Health Record. If you have any questions, please contact the author of this message via ITS. Dr. Michoacano Larose MD Altered Mental Status was documented in the ED Note and H & P History/Risk Factors: 83 year old female presents to the ED for weakness and mental status changes. Medical History of COPD, Dementia with sundowners, GERD, HTN, OA , Clinical Indicators: Per the H &P presented to the emergency department and due to concern from her charge account identification clerk and family of altered mentation and vomiting. Labs: Wbc 11.4; Bun 40.0; X Ray:CXR - left lower lobe infiltrate CT: Brain without contrast - there is moderate diffuse age related cerebral atrophy and chronic small vessel ischemic change demonstrated. There is no significant change from prior. Treatment: Brain CT; Labs; Fall Precautions. In your professional opinion, please clarify the etiology of the Altered Mental Status, if known. Encephalopathy (specify Type and Underlying Medical Illness) Dementia (if know, specify Type and if with/without Behavioral Disturbance) Other condition (please specify) Unable to determine (Last Revision: February 2018) DICKSOND
[2019-06-10] MEDS: NICOTINE 14MG/24HR PATCH TRANSDERM SCH (09:26)
[2019-06-10 09:40] LABS: Calcium 8.9 mg/dL (8.4-10.2); Potassium 4.3 mmol/L (3.5-5.1)
[2019-06-10] MEDS: AZITHROMYCIN 500 MG TAB PO SCH (12:34)
[2019-06-10] MEDS: risperiDONE 1 MG TAB PO SCH ×2 (12:34→21:04)
--- NOTE | 2019-06-10 13:39 | P.PN ---
Subjective Progress Note Date: 06/10/19 Patient is awake oriented to self pleasantly confused laying comfortably in bed. Her friend was there preparing lunch tray for her to eat. Friend reported patient's mental status seems to be at baseline currently. Patient stated she is feeling wonderful and has no complaints. She denies all of the review system but I doubt the reliability due to presence of her dementia. No other issues were brought up by the nurses. It was communicated to this sports writer that social media senior associate was concern about the power of banking attorney for patient's healthcare. On further investigation it was noted that patient's son has DURABLE POWER OF DISTRICT MANAGER PRIMARY CARE SALES for patient's care but he is currently visiting [place] and another son is on his way in a flight to [place] and he will become dictated to get the DURABLE POWER OF DISTRICT MANAGER PRIMARY CARE SALES papers. Objective - Vital Signs Vital signs: Vital Signs Temp 97.5 F L 06/10/19 12:16 Pulse 63 06/10/19 12:16 Resp 16 06/10/19 12:16 BP 104/65 06/10/19 12:16 Pulse Ox 99 06/10/19 12:16 Intake & Output 06/09/19 06/10/19 06/10/19 18:59 06:59 18:59 Intake Total 1440 Output Total 1 Balance 1440 -1 Weight 48.988 kg Intake: Intake, IV Titration 900 Amount Sodium Chloride 0.9% 1, 900 000 ml @ 75 mls/hr IV . [id number] [facility] Rx#:[id number] Oral 540 Output: Urine 1 Other: Voiding Method Toilet # Voids 2 # Bowel Movements 1 - Constitutional General appearance: Present: cooperative, no acute distress - EENT Eyes: Present: EOMI, normal appearance ENT: Present: hearing grossly normal - Neck Neck: Present: normal ROM. Absent: lymphadenopathy, rigidity, stridor - Respiratory Respiratory: bilateral: CTA, negative: rales, rhonchi, wheezing - Cardiovascular Rhythm: regular Heart sounds: normal: S1, S2 Abnormal Heart Sounds: Absent: systolic murmur, diastolic murmur, S3 Gallop, S4 Gallop - Gastrointestinal General gastrointestinal: Present: normal bowel sounds, soft. Absent: distended, rigid, tenderness - Neurologic Neurologic: Present: CNII-XII intact. Absent: focal deficits - Psychiatric Psychiatric Comment(s): Patient seems to be pleasantly confused, oriented 1 or 2. - Allied health notes Allied health notes reviewed: nursing - Labs CBC & Chem 7: 06/10/19 08:55 06/10/19 08:55 Labs: Abnormal Lab Results - Last 24 Hours (Table) 06/09/19 06/10/19 Range/Units 13:00 08:55 Chloride 108 H (98-107) mmol/L BUN 24 H (7-17) mg/dL Urine Appearance Cloudy H (Clear) Urine Protein Trace H (Negative) Urine Bacteria Rare H (None) /hpf Assessment and Plan (1) Essential (primary) hypertension Current Visit: Yes Status: Acute Priority: Medium Code(s): I10 - ESSENTIAL (PRIMARY) HYPERTENSION SNOMED Code(s): 04902185 (2) Altered mental status Current Visit: Yes Status: Resolved Priority: Medium Code(s): R41.82 - ALTERED MENTAL STATUS, UNSPECIFIED SNOMED Code(s): 184495282 (3) Dementia Current Visit: Yes Status: Chronic Priority: Medium Code(s): F03.90 - UNSPECIFIED DEMENTIA WITHOUT BEHAVIORAL DISTURBANCE SNOMED Code(s): 33119246 (4) Pneumonia Current Visit: Yes Status: Acute Priority: High Code(s): J18.9 - PNEUMONIA, UNSPECIFIED ORGANISM SNOMED Code(s): 088578536 Plan: Patient is clinically improving and she will be continued on IV ceftriaxone and azithromycin and she will be monitored closely. Patient is going to be continued on her antihypertensive medication and her behavioral medication along with the Desyrel to control the sundowning. We will try to communicate with patient's son Rodrigo Blanton to get the DURABLE POWER OF DISTRICT MANAGER PRIMARY CARE SALES papers so that the hospital files can be updated. If patient continues to improve the way she is she will be ready to discharge in next 24-48 hours. I will put physical therapy/occupational therapy consult for evaluation and management, and social work consult for possible subacute rehabilitation placement if needed. Time with Patient: Less than 30
--- NOTE | 2019-06-10 14:11 | XR ---
EXAMINATION TYPE: XR chest 1V portable DATE OF EXAM: 06/10/2019 COMPARISON: 06/09/2019 HISTORY: Shortness of breath TECHNIQUE: Frontal and lateral views of the chest are obtained. FINDINGS: Scattered senescent parenchymal changes noted. Hyperinflation compatible with COPD. No evidence for infiltrate. No evidence for atelectasis. Heart size is stable. Mediastinal structures are stable and grossly unremarkable. No evidence for hilar prominence. Degenerative changes dorsal spine. IMPRESSION: 1. No evidence for acute pulmonary disease.
[2019-06-10] MEDS: MELATONIN 5 MG TABLET PO SCH (21:04)
[2019-06-10] MEDS: traZODone HCL 50 MG TAB PO SCH (21:04)
[2019-06-11] MEDS: ENOXAPARIN 40 MG/0.4 ML SYRINGE SQ SCH (07:51)
[2019-06-11] MEDS: amLODIPine 10 MG TAB PO SCH (07:52)
[2019-06-11] MEDS: NICOTINE 14MG/24HR PATCH TRANSDERM SCH (07:52)
[2019-06-11] MEDS: LISINOPRIL 20 MG TAB PO SCH (07:52)
[2019-06-11] MEDS: SODIUM CHLORIDE 0.9% 1,000 ML IV SCH ×2 (07:52→11:21)
[2019-06-11] MEDS: PANTOPRAZOLE 40 MG TABLET PO SCH (10:29)
--- NOTE | 2019-06-11 10:38 | P.PN ---
Subjective Progress Note Date: 06/11/19 Patient reports that she is feeling better and her breathing is getting better. She states that she is coughing up a lot of junk and clearing her lungs. Patient did complain of having heartburn and reported that she used to take Tums at home. Patient denied chest pain, palpitation, headache, dizziness, nausea, vomiting, diarrhea, fever, chills and denies rest of the review system but I doubt the reliability due to presence of her confusion and dementia. I had the opportunity to talk to patient's personal banking assistant who is coordinating care between this hospital and patient's joint DURABLE POWER OF SUSTAINABLE DEVELOPMENT POLICY ANALYST both sons. During the meeting in the morning it was reported that recommendation of long- term care facility placement was declined by patient's sons and they want the patient to go back to do [facility] assisted living apartment with [facility] services. Patient's caregiver reported that he shouldn't was recently about a month ago moved to this assisted living department. On discussion with the patient she had no recollection of her recent apartment but [place] Patient's caregiver reported that patient is in the transition towards the long-term care facility placement as she recently moved to apartment from her independent living. Objective - Vital Signs Vital signs: Vital Signs Temp 97.6 F 06/11/19 05:00 Pulse 66 06/11/19 08:00 Resp 20 06/11/19 08:00 BP 133/71 06/11/19 05:00 Pulse Ox 94 L 06/11/19 09:22 Intake & Output 06/10/19 06/11/19 06/11/19 18:59 06:59 18:59 Intake Total 952 Output Total 2 Balance -2 952 Intake: Intake, IV Titration 712 Amount Sodium Chloride 0.9% 1, 712 000 ml @ 75 mls/hr IV . [id number] [facility] Rx#:[id number] Oral 240 Output: Urine 2 Other: Voiding Method Toilet Toilet Toilet # Voids 1 1 - Constitutional General appearance: Present: cooperative, no acute distress - EENT Eyes: Present: EOMI, normal appearance ENT: Present: hearing grossly normal - Neck Neck: Present: normal ROM. Absent: lymphadenopathy, rigidity - Respiratory Respiratory: bilateral: CTA, negative: rales, rhonchi, wheezing - Cardiovascular Rhythm: regular Heart sounds: normal: S1, S2 Abnormal Heart Sounds: Absent: systolic murmur, diastolic murmur, S3 Gallop, S4 Gallop - Gastrointestinal General gastrointestinal: Present: normal bowel sounds, soft. Absent: distended, rigid, tenderness - Neurologic Neurologic: Present: CNII-XII intact - Psychiatric Psychiatric Comment(s): Pleasantly confused, oriented 1 or 2, appropriate affect and poor judgment and lack of insight towards her physical and mental limitations. - Allied health notes Allied health notes reviewed: case management - Labs CBC & Chem 7: 06/10/19 08:55 06/10/19 08:55 Labs: Microbiology - Last 24 Hours (Table) 06/09/19 12:45 Blood Culture - Preliminary Blood No Growth after 24 hours - Imaging and Cardiology Chest x-ray: report reviewed (Patient does have better and radiation but not sure about complete resolution of left lower lobe infiltrate in 2 days.) Assessment and Plan (1) Essential (primary) hypertension Current Visit: Yes Status: Acute Priority: Medium Code(s): I10 - ESSENTIAL (PRIMARY) HYPERTENSION SNOMED Code(s): 02404287 (2) Altered mental status Current Visit: Yes Status: Resolved Priority: Medium Code(s): R41.82 - AL TERED MENTAL STATUS, UNSPECIFIED SNOMED Code(s): 048430251 (3) Dementia Current Visit: Yes Status: Chronic Priority: Medium Code(s): F03.90 - UNSPECIFIED DEMENTIA WITHOUT BEHAVIORAL DISTURBANCE SNOMED Code(s): 92711183 (4) Pneumonia Current Visit: Yes Status: Acute Priority: High Code(s): J18.9 - PNEUMONIA, UNSPECIFIED ORGANISM SNOMED Code(s): 662053751 Plan: Patient medication will be continued including antibiotics for third day today and after that she will complete oral antibiotics for another 2 days. Patient is clinically much improved and will be able to be discharged in next 24 hours. Patient will be given oral proton pump inhibitor for her heartburn and gastric reflux. I had a long discussion about patient's care with utilization management, criminal justice social worker, nurse on duty and patient personal banking assistant about patient's disposition, safety and long-term management. It was a recommended as my recommendation that patient should be transferred from the hospital to the long-term care facility for her safety and security. Patient does have dementia with sundowning and gets agitated towards the early evening and nighttime and she also wonders at times as reported by the personal banking assistant. It was also noted that patient is recently transferred to the [facility] assisted living apartment and it was recommended that due to dementia she does not even have recollection of her recent move and it will not hurt her rather it will benefit her to be placed directly after discharge from the hospital into nursing facility where 24/7 care is provided, as it was recommended by both physical and occupational therapist. After long discussion and explanation about the need for the patient's safety, patient's personal banking assistant understood and verbalizes understanding about its need. She stated that she is going to communicate with both of patient's son Rodrigo and Crispin and communicate this discussion to them. She also stated that she agree with the long-term care placement after being discharged from this hospital. If patient continues to improve and remain stable as she is doing now and patient will be able to be discharged in next 24 hours. Total time spent was more than 40 minutes, in which more than 50% of the time was spent in coordination of care and education to the patient and her personal banking assistant. Time with Patient: Greater than 30
[2019-06-11] MEDS: risperiDONE 1 MG TAB PO SCH ×2 (11:20→20:01)
[2019-06-11] MEDS: AZITHROMYCIN 500 MG TAB PO SCH (11:20)
[2019-06-11] MEDS: ACETAMINOPHEN TAB 325 MG TAB PO PRN (13:42)
[2019-06-11] MEDS: LORazepam 1 MG TAB PO PRN (17:59)
[2019-06-11] MEDS: MELATONIN 5 MG TABLET PO SCH (20:14)
[2019-06-11] MEDS: traZODone HCL 50 MG TAB PO SCH (20:14)
[2019-06-12] MEDS ORDERED: LORazepam 1 MG TAB PO STA (04:02)
[2019-06-12] MEDS: PANTOPRAZOLE 40 MG TABLET PO SCH (08:21)
[2019-06-12] MEDS: LISINOPRIL 20 MG TAB PO SCH (08:21)
[2019-06-12] MEDS: NICOTINE 14MG/24HR PATCH TRANSDERM SCH (08:21)
[2019-06-12] MEDS: amLODIPine 10 MG TAB PO SCH (08:21)
[2019-06-12] MEDS: ENOXAPARIN 40 MG/0.4 ML SYRINGE SQ SCH (08:22)
[2019-06-12] MEDS: CEFDINIR 300 MG CAP PO SCH ×2 (08:23→20:21)
--- NOTE | 2019-06-12 13:02 | P.DS ---
Providers Date of admission: 06/09/19 14:30 Expected date of discharge: 06/12/19 Attending physician: Christa Johnson DO Primary care physician: Polo [facility] Course: 83-year-old female with PMH of dementia with sundowning, hypertension, GERD, nephrolithiasis, possible COPD presented to the ED due to concerns of her group sales coordinator for altered mental status and vomiting. She was found to have a heart rate of 103, leukocytosis of 11.4 and BUN of 40. CT brain shows no acute findings. Chest x-ray showed left lower lobe infiltrate. She was admitted for treatment of pneumonia and hydration. There was some concerns of the ability for the patient to take care of herself. Per case management, patient lives at [facility] and has support intermittently throughout the day. PT evaluated the patient and recommended 24-hour assisted-living. Case management was able to discuss the case with the guardian of the patient. Decision was made by the guardian to send the patient back to assisted living at [facility] with home health. The guardian discussed with case management that they would provide additional care giving to meet the 24 7 requirement. Patient was also wait listed for placement at [facility]. Patient was seen and examined prior to discharge. No acute events overnight. Per RN, patient was given trazodone and Risperdal last night. Patient has been very sleepy and has not woken up since this morning. She denies any breakfast.I discussed the case with a group sales coordinator at bedside. Apparently, this is normal for the patient. She goes through days of no sleep followed by crashing. Tenter states that patient usually wakes up around 2 PM. General: [non toxic], [no distress], [appears at stated age] Derm: [warm], [dry] Head: [atraumatic], [normocephalic], [symmetric] Eyes: [EOMI], [no lid lag], [anicteric sclera] Mouth: [no lip lesion], [mucus membranes moist] Cardiovascular: [S1S2 reg], [no murmur], [positive posterior tibial pulse bilateral] Lungs: [Coarse breath sounds bilateral], [no rhonchi, no rales] , [no accessory muscle use] Abdominal: [soft], [ nontender to palpation], [no guarding], [no appreciable organomegaly] Ext: [no gross muscle atrophy], [no edema], [no contractures] Psych: [Difficult to wake up] Community-acquired pneumonia Elevated BUN likely secondary to dehydration Dementia with sundowning Hypertension Tobacco use As seen on chest x-ray. Improved on repeat. Patient has no leukocytosis and is afebrile. Blood cultures negative at 48 hours. Plans: We'll transition Rocephin and Zithromax to cefdinir on discharge to complete a total of 7 days. O2 per NC to maintain O2 saturation greater than 92%. DuoNeb as needed for shortness of breath and wheezing. Tylenol as needed for fever. Follow blood cultures. Sputum culture unable to be collected. BUN 40-24. Likely secondary to dehydration. Plans: Continue normal saline at 75 mL per hour. Encourage hydration by mouth. Daily BMP. Plans: Continue Ativan,trazodone, Risperdal as needed. Frequent redirection. Window side bed. Plans: Encourage to quit. We will wait and see how the patient does over the next couple of hours. Her nasal cannula has been discontinued and she has been connected to a pulse ox. If her mentation is improved and group sales coordinator is confident taking the patient home, we will discharge the patient on oral antibiotics today. Pertinent Studies: chest x-ray, brain CT Patient Condition at Discharge: Fair Plan - Discharge Summary Discharge Rx Participant: No New Discharge Prescriptions: New Cefdinir [Omnicef] 300 mg PO BID #4 cap Continue amLODIPine BESYLATE/BENAZEPRIL [Lotrel 10-40 MG] 1 cap PO DAILY@0800 risperiDONE [RisperDAL] 1 mg PO BID@1229,2044 Melatonin 10 mg PO HS@2099 Furosemide [Lasix] 20 mg PO DAILY@0800 PRN PRN Reason: Edema risperiDONE [RisperDAL] 0.5 mg PO DAILY PRN PRN Reason: Agitation traZODone HCL 25 mg PO HS Discharge Medication List amLODIPine BESYLATE/BENAZEPRIL [Lotrel 10-40 MG] 1 cap PO DAILY@0800 08/02/14 [History] Furosemide [Lasix] 20 mg PO DAILY@0800 PRN 05/24/19 [History] Melatonin 10 mg PO HS@209905/24/19 [History] risperiDONE [RisperDAL] 0.5 mg PO DAILY PRN 05/24/19 [History] risperiDONE [RisperDAL] 1 mg PO BID@1230,2045 05/24/19 [History] traZODone HCL 25 mg PO HS 06/09/19 [History] Cefdinir [Omnicef] 300 mg PO BID #4 cap 06/12/19 [Rx] Follow up Appointment(s)/Referral(s): [facility], [REFERRING] - 1-2 Days Polo Poole MD [Primary Care Provider] - 1-2 days Activity/Diet/Wound Care/Special Instructions: Diet: Heart healthy Follow-up PCP within 1-2 days of discharge. Take all medications as advised. This patient will be needing 24-hour supervision which has been guaranteed by the group sales coordinator at bedside. Discharge Disposition: HOME SELF-CARE
[2019-06-12 13:09] VITALS: RESP 16
[2019-06-12] MEDS: SODIUM CHLORIDE 0.9% 1,000 ML IV SCH ×2 (13:45→21:30)
[2019-06-12] MEDS: risperiDONE 1 MG TAB PO SCH ×2 (13:45→20:21)
[2019-06-12] MEDS: AZITHROMYCIN 500 MG TAB PO SCH (13:45)
[2019-06-12] MEDS: MELATONIN 5 MG TABLET PO SCH (20:21)
[2019-06-12] MEDS: traZODone HCL 50 MG TAB PO SCH (20:21)
[2019-06-12] MEDS: ACETAMINOPHEN TAB 325 MG TAB PO PRN (20:21)
[2019-06-12] MEDS: guaiFENesin 600 MG TABLET.ER PO SCH (20:21)
[2019-06-12] MEDS: LORazepam 1 MG TAB PO PRN (20:21)
[2019-06-13] MEDS: LORazepam 1 MG TAB PO PRN (10:57)
[2019-06-13] MEDS: guaiFENesin 600 MG TABLET.ER PO SCH (10:58)
[2019-06-13] MEDS: amLODIPine 10 MG TAB PO SCH (10:58)
[2019-06-13] MEDS: NICOTINE 14MG/24HR PATCH TRANSDERM SCH (10:59)
[2019-06-13] MEDS: PANTOPRAZOLE 40 MG TABLET PO SCH (10:59)
[2019-06-13] MEDS: ENOXAPARIN 40 MG/0.4 ML SYRINGE SQ SCH (10:59)
[2019-06-13] MEDS: LISINOPRIL 20 MG TAB PO SCH (10:59)
[2019-06-13] MEDS: CEFDINIR 300 MG CAP PO SCH ×2 (11:01→17:38)
[2019-06-13 11:48] VITALS: BP 124/84; PULSE 73; TEMP 97.3
[2019-06-13] MEDS: risperiDONE 1 MG TAB PO SCH (13:33)
[2019-06-13] MEDS: AZITHROMYCIN 500 MG TAB PO SCH (13:33)
== END 2019-06-13 18:20 | disposition home health service (06) | DRG 194 ==
LOC: EC 11:21 → EEVIPCON 14:30 → 3NMEDONC 14:30
PROVIDERS: ADMIT Internal Medicine; ATTEND Internal Medicine
DX: J18.1 Lobar pneumonia, unspecified organism (principal); J44.0 Chronic obstructive pulmonary disease with (acute) lower respiratory infection; N39.0 Urinary tract infection, site not specified; F05 Delirium due to known physiological condition; E86.0 Dehydration; F03.90 Unspecified dementia, unspecified severity, without behavioral disturbance, psychotic disturbance, mood disturbance, and anxiety; F17.210 Nicotine dependence, cigarettes, uncomplicated; M19.90 Unspecified osteoarthritis, unspecified site; I10 Essential (primary) hypertension; K21.9 Gastro-esophageal reflux disease without esophagitis; K59.00 Constipation, unspecified; R41.82 Altered mental status, unspecified; K57.90 Diverticulosis of intestine, part unspecified, without perforation or abscess without bleeding; K44.9 Diaphragmatic hernia without obstruction or gangrene; Z66 Do not resuscitate; Z90.710 Acquired absence of both cervix and uterus; Z87.442 Personal history of urinary calculi; Z87.440 Personal history of urinary (tract) infections; Z79.899 Other long term (current) drug therapy; Z88.8 Allergy status to other drugs, medicaments and biological substances; Z91.041 Radiographic dye allergy status; Z90.49 Acquired absence of other specified parts of digestive tract; Z98.49 Cataract extraction status, unspecified eye; Z96.1 Presence of intraocular lens; Z82.49 Family history of ischemic heart disease and other diseases of the circulatory system; Z83.3 Family history of diabetes mellitus
CPT/HCPCS: 36415; 70450; 71045; 71046; 80048; 80053; 81001; 83605; 83735; 84100; 84484; 85025; 85027; 85610; 85730; 87040; 93005; 94640; 96361; 96365; 96367; 99285

== ENCOUNTER 2019-06-19 19:01 | Emergency (ER) | payer MEDICARE ==
[2019-06-19 19:15] VITALS: PULSE 63; RESP 18
[2019-06-19] MEDS ORDERED: SODIUM CHLORIDE 0.9% 500 ML 500 ML IV STA (19:55)
--- NOTE | 2019-06-19 19:55 | ED ---
General Adult HPI - General Chief complaint: Urogenital Stated complaint: Poss uti Time Seen by Provider: 06/19/19 19:47 Source: patient, RN notes reviewed, old records reviewed, Caregiver Mode of arrival: wheelchair Limitations: altered mental status - History of Present Illness Initial comments: 83-year-old female patient past medical history of dementia presents to ED with caregiver. Caregiver reports the patient is having urinary urgency, believes t hat she may have a urinary tract infection. Patient denies all complaints. Denies any chest pain or abdominal pain nausea vomiting diarrhea. Patient denies any dysuria. Systemic: Pt denies fatigue, fever/chills, rash. Pt denies weakness, night sweats, weight loss. Neuro: Pt denies headache, visual disturbances, syncope or pre-syncope. HEENT: Pt denies ocular discharge or irritation, otalgia, rhinorrhea, pharyngitis or notable lymphadenopathy. Cardiopulmonary: Pt denies chest pain, SOB, heart palpitations, dyspnea on exertion. Abdominal/GI: Pt denies abdominal pain, n/v/d. : Pt denies dysuria, burning w/ urination. Denies new onset urinary or bowel incontinence. MSK: Pt denies myalgia, loss of strength or function in extremities. Neuro: Pt denies new onset weakness, paresthesias. - Related Data Home Medications Medication Instructions Recorded Confirmed amLODIPine BESYLATE/BENAZEPRIL 1 cap PO DAILY@0800 //06/09/19 [Lotrel 10-40 MG] Furosemide [Lasix] 20 mg PO DAILY@0800 PRN 05/24/19 06/09/19 Melatonin 10 mg PO HS@2100 05/24/19 06/09/19 risperiDONE [RisperDAL] 0.5 mg PO DAILY PRN 05/24/19 06/09/19 risperiDONE [RisperDAL] 1 mg PO BID@1230,2045 05/24/19 06/09/19 traZODone HCL 25 mg PO HS 06/09/19 06/09/19 Previous Rx's Medication Instructions Recorded Cefdinir [Omnicef] 300 mg PO Q12HR #3 capsule 06/13/19 Allergies Allergy/AdvReac Type Severity Reaction Status Date / Time Iodinated Contrast- Oral and AdvReac "I went Verified 06/19/19 19:08 IV Dye crazy" [Iodinated Contrast Media - IV Dye] prednisone AdvReac Nausea & Verified 06/19/19 19:08 Vomiting Review of Systems ROS Statement: Those systems with pertinent positive or pertinent negative responses have been documented in the HPI. ROS Other: All systems not noted in ROS Statement are negative. Past Medical History Past Medical History: COPD, Dementia, GERD/Reflux, Hypertension, Osteoarthritis (OA) Additional Past Medical History / Comment(s): Chronic Bronchitis, nephrolithiasis, constipation/stool impactions, diverticulosis, hepatitis years ago-pt cannot recall type, occasional ankle/pedal edema, arthritis in hands/fingers/feet/toes, hiatla hernia. T 3 compression fracture. Frequent UTI. History of Any Multi-Drug Resistant Organisms: None Reported Past Surgical History: Appendectomy, Back Surgery, Hysterectomy, Orthopedic Surgery, Tonsillectomy Additional Past Surgical History / Comment(s): EGD, colonoscopy, hemorrhoid ectomy, bilateral carpal tunnel releases, lumbar fusion, bilateral cataract removals/lens implants, L eye corneal debridement. Past Anesthesia/Blood Transfusion Reactions: No Reported Reaction Past Psychological History: No Psychological Hx Reported Smoking Status: Current every day smoker Past Alcohol Use History: None Reported - Past Family History Mother Family Medical History: Coronary Artery Disease (CAD), Diabetes Mellitus, Hypertension Father Family Medical History: Coronary Artery Disease (CAD) Additional Family Medical History / Comment(s): Father had PUD. General Exam - General Exam Comments Initial Comments: Constitutional: NAD, AOX3, Pt has pleasant affect. HEENT: NC/AT, trachea midline, neck supple, no lymphadenopathy. Posterior pharynx non erythematous, without exudates. External ears appear normal, without discharge. Mucous membranes moist. Eyes PERRLA, EOM intact. There is no scleral icterus. No pallor noted. Cardiopulmonary: RRR, no murmurs, rubs or gallops, no JVD noted. Lungs CTAB in anterior and posterior glez. No peripheral edema. Abdominal exam: Abdomen soft and non-distended. Abdomen non-tender to palpation in all 4 quadrants. Bowel sounds active in LLQ. No hepatosplenomegaly. No ecchymosis Neuro: CN II-XII grossly intact. No nuchal rigidity. No raccon eyes, no arredondo sign, no hemotympanum. No cervical spinal tenderness. MSK: No posterior calf tenderness bilaterally, homans sign negative bilaterally. Posterior tibialis and radial pulse +2 bilaterally. Sensation intact in upper and lower extremities. Full active ROM in upper and lower extremities, 5/5 stre gnth. Limitations: altered mental status Course Vital Signs 06/19/19 19:08 Temperature 97.4 F L Pulse Rate 63 Respiratory 18 Rate Blood Pressure 111/58 O2 Sat by Pulse 95 Oximetry Medical Decision Making - Medical Decision Making 83-year-old female patient past medical history of dementia presents to ED with caregiver. Caregiver reports the patient is having urinary urgency, believes that she may have a urinary tract infection. Patient denies all complaints. Denies any chest pain or abdominal pain nausea vomiting diarrhea. Patient den ies any dysuria. Patient vital signs stable, afebrile. Physical exam didn't display acute pathology. Laboratory investigations non-impressive. UA negative. Patient discharge, follow with primary care provider, return to ER if condition worsens. Case discussed with Dr. Carpenter. - Lab Data Result diagrams: 06/19/19 20:40 06/19/19 20:40 Lab Results 06/19/19 06/19/19 06/19/19 Range/Units 20:40 20:40 20:40 WBC 7.8 (3.8-10.6) k/uL RBC 4.27 (3.80-5.40) m/uL Hgb 13.1 (11.4-16.0) gm/dL Hct 39.7 (34.0-46.0) % MCV 93.0 (80.0-100.0) fL MCH 30.6 (25.0-35.0) pg MCHC 32.9 (31.0-37.0) g/dL RDW 14.0 (11.5-15.5) % Plt Count 247 (150-450) k/uL Neutrophils % 59 % Lymphocytes % 22 % Monocytes % 8 % Eosinophils % 7 % Basophils % 1 % Neutrophils # 4.6 (1.3-7.7) k/uL Lymphocytes # 1.7 (1.0-4.8) k/uL Monocytes # 0.6 (0-1.0) k/uL Eosinophils # 0.5 (0-0.7) k/uL Basophils # 0.1 (0-0.2) k/uL Sodium 135 L (137-145) mmol/L Potassium 4.2 (3.5-5.1) mmol/L Chloride 103 (98-107) mmol/L Carbon Dioxide 24 (22-30) mmol/L Anion Gap 8 mmol/L BUN 24 H (7-17) mg/dL Creatinine 0.91 (0.52-1.04) mg/dL Est GFR (CKD-EPI)AfAm 67 (>60 ml/min/1.73 sqM) Est GFR (CKD-EPI)NonAf 59 (>60 ml/min/1.73 sqM) Glucose 119 H (74-99) mg/dL Plasma Lactic Acid Lázaro 1.2 (0.7-2.0) mmol/L Calcium 9.1 (8.4-10.2) mg/dL Total Bilirubin 0.3 (0.2-1.3) mg/dL AST 18 (14-36) U/L ALT 21 (9-52) U/L Alkaline Phosphatase 91 (38-126) U/L Total Protein 6.1 L (6.3-8.2) g/dL Albumin 3.5 (3.5-5.0) g/dL Urine Color Urine Appearance (Clear) Urine pH (5.0-8.0) Ur Specific [place] (1.001-1.035) Urine Protein (Negative) Urine Glucose (UA) (Negative) Urine Ketones (Negative) Urine Blood (Negative) Urine Nitrite (Negative) Urine Bilirubin (Negative) Urine Urobilinogen (<2.0) mg/dL Ur Leukocyte Esterase (Negative) 06/19/19 Range/Units 21:50 WBC (3.8-10.6) k/uL RBC (3.80-5.40) m/uL Hgb (11.4-16.0) gm/dL Hct (34.0-46.0) % MCV (80.0-100.0) fL MCH (25.0-35.0) pg MCHC (31.0-37.0) g/dL RDW (11.5-15.5) % Plt Count (150-450) k/uL Neutrophils % % Lymphocytes % % Monocytes % % Eosinophils % % Basophils % % Neutrophils # (1.3-7.7) k/uL Lymphocytes # (1.0-4.8) k/uL Monocytes # (0-1.0) k/uL Eosinophils # (0-0.7) k/uL Basophils # (0-0.2) k/uL Sodium (137-145) mmol/L Potassium (3.5-5.1) mmol/L Chloride (98-107) mmol/L Carbon Dioxide (22-30) mmol/L Anion Gap mmol/L BUN (7-17) mg/dL Creatinine (0.52-1.04) mg/dL Est GFR (CKD-EPI)AfAm (>60 ml/min/1.73 sqM) Est GFR (CKD-EPI)NonAf (>60 ml/min/1.73 sqM) Glucose (74-99) mg/dL Plasma Lactic Acid Lázaro (0.7-2.0) mmol/L Calcium (8.4-10.2) mg/dL Total Bilirubin (0.2-1.3) mg/dL AST (14-36) U/L ALT (9-52) U/L Alkaline Phosphatase (38-126) U/L Total Protein (6.3-8.2) g/dL Albumin (3.5-5.0) g/dL Urine Color Yellow Urine Appearance Clear (Clear) Urine pH 6.0 (5.0-8.0) Ur Specific [place] 1.013 (1.001-1.035) Urine Protein Negative (Negative) Urine Glucose (UA) Negative (Negative) Urine Ketones Negative (Negative) Urine Blood Negative (Negative) Urine Nitrite Negative (Negative) Urine Bilirubin Negative (Negative) Urine Urobilinogen <2.0 (<2.0) mg/dL Ur Leukocyte Esterase Negative (Negative) Disposition Clinical Impression: Urinary urgency Disposition: HOME SELF-CARE Condition: Stable Additional Instructions: Patient to adhere to previously discussed treatment plan and will take med ication(s) as directed. Patient to follow up with PCP in 1-2 days. Patient to return to ED if symptoms do not improve. Follow-up with primary care provider tomorrow, return to ER if condition worsens in any way. Is patient prescribed a controlled substance at d/c from ED?: No Referrals: Polo Poole MD [Primary Care Provider] - 1-2 days
[2019-06-19 20:53] LABS: Basophils # (A) 0.1 k/uL (0-0.2); Basophils % (A) 1 %; Eosinophils # (A) 0.5 k/uL (0-0.7); Eosinophils % (A) 7 %; HCT 39.7 % (34.0-46.0); HGB 13.1 gm/dL (11.4-16.0); Lymphocytes # (A) 1.7 k/uL (1.0-4.8); Lymphocytes % (A) 22 %; MCH 30.6 pg (25.0-35.0); MCHC 32.9 g/dL (31.0-37.0); Mean Platelet Volume 7.2; Monocytes # (A) 0.6 k/uL (0-1.0); Monocytes % (A) 8 %; Neutrophils # (A) 4.6 k/uL (1.3-7.7); Neutrophils % (A) 59 %; Platelet Count 247 k/uL (150-450); RBC 4.27 m/uL (3.80-5.40); WBC 7.8 k/uL (3.8-10.6)
[2019-06-19 21:06] LABS: Albumin 3.5 g/dL (3.5-5.0); Calcium 9.1 mg/dL (8.4-10.2); Potassium 4.2 mmol/L (3.5-5.1); Total Bilirubin 0.3 mg/dL (0.2-1.3); Total Protein 6.1 g/dL (6.3-8.2)
[2019-06-19 22:30] LABS: Appearance,Urine Clear (Clear); Bilirubin,Urine Negative (Negative); Blood,Urine Negative (Negative); Color,Urine Yellow; Glucose,Urine (UA) Negative (Negative); Ketones,Urine Negative (Negative); Leukocyte Esterase,Urine Negative (Negative); Nitrite,Urine Negative (Negative); Protein,Urine Negative (Negative); Specific Gravity,Urine 1.013 (1.001-1.035); Urobilinogen,Urine <2.0 mg/dL (<2.0)
[2019-06-19 23:42] VITALS: BP 135/79; TEMP 98.2
== END 2019-06-19 23:42 | disposition home or self-care (01) ==
LOC: EC 19:01
DX: R39.15 Urgency of urination (principal); F03.90 Unspecified dementia, unspecified severity, without behavioral disturbance, psychotic disturbance, mood disturbance, and anxiety; I10 Essential (primary) hypertension; F17.200 Nicotine dependence, unspecified, uncomplicated; Z88.8 Allergy status to other drugs, medicaments and biological substances; Z91.041 Radiographic dye allergy status; Z79.899 Other long term (current) drug therapy; Z87.440 Personal history of urinary (tract) infections
CPT/HCPCS: 36415; 51701; 80053; 81003; 83605; 85025; 96360; 99284